=== PATIENT | male | born 1995 | race Caucasian/White ===

== ENCOUNTER 2016-08-09 13:18 | Emergency (ER) | payer MEDICAID ==
[~2016-08-09] VITALS: Ht 162.6 cm; Wt 70.0 kg
[~2016-08-09 13:18] MED LIST: HUMALOG SQ; INSU100V3; LIPI10TA PO; [UNRECOGNIZED DRUG - SUPPLY]
[2016-08-09 13:20] VITALS: BP 138/80; PULSE 104; RESP 20; TEMP 98.1; O2SAT 97
--- NOTE | 2016-08-09 13:40 | PD ---
Physical Exam Date Seen by Provider: Aug 09, 2016 Time Seen by Provider: 13:36 Narrative Patient seen in Triage with Complaints of Bilateral Arm Pain, R>L in the anterior elbows S/P recent Weightlifting. Patient states 15 reps X 10 each. Now having pain and stiffness with Decreased ROM due to pain. No other complaints. Patient has tried tylenol and ice without relief. Vital Signs Stable. Patient waiting Bed Placement. Data Data Last Documented VS Vital Signs Date Time Temp Pulse Resp B/P Pulse Ox O2 Delivery O2 Flow Rate FiO2 08/09/16 13:20 98.1 104 20 138/80 97 Room Air [facility] Medical Record Reviewed: Yes Supervised Visit with KOBE: Yes Condition: Stable Gus Granda Aug 09, 2016 13:40
[2016-08-09] MEDS ORDERED: IBUP800T23 PO (14:57)
[2016-08-09] MEDS ORDERED: ROBA500T PO (14:57)
--- NOTE | 2016-08-09 14:58 | PD ---
HPI Chief Complaint: Pain: Acute or Chronic Time Seen by Provider: 14:55 Travel History International Travel<30 days: No Contact w/Intl Traveler<30days: No Traveled to known affect area: No History of Present Illness HPI 20-year-old male presents to the emergency Department with complaint of bilateral biceps pain after working out lifting weights at the gym yesterday. Yesterday was his first time working out in a long time. He reports drinking multiple repetitions of arm workouts. He denies paresthesias, loss of sensation to bilateral upper extremities. Reports decreased range of motion at the elbow secondary to pain to the biceps with extension of his arms. Denies decreased strength to bilateral upper extremities. Denies fever, chills, nausea , vomiting. Has taken Tylenol with minimal relief of pain. No known allergies. History of type [address] Hanna is primary care provider. No other modifying factors or associated signs and symptoms. PFSH Past Medical History Developmental Delay: No Diabetes: Yes (TYPE 1) Diminished Hearing: No Immunizations Current: Yes Social History Alcohol Use: No Tobacco Use: No Substance Use: No Allergies-Medications (Allergen,Severity, Reaction): Coded Allergies: No Known Allergies (Verified , 10/07/14) Reported Meds & Prescriptions Reported Meds & Active Scripts Active Ibuprofen 800 Mg Tab 800 Mg PO Q6HR PRN Robaxin (Methocarbamol) 500 Mg Tab 500 Mg PO QID PRN [onetouch ultrablue] Strips Humalog (Insulin Human Lispro) 100 Units/Ml Inj 1 Unit SQ DIRECTED HUMALOG SLIDING SCALE INSULIN DIRECTED Reported Lipitor 10 Mg Tab (Atorvastatin Calcium) 10 Mg Tab 10 Mg PO DAILY Humulin N (Insulin Human NPH) Inj Review of Systems Except as stated in HPI: all other systems reviewed are Neg Physical Exam Narrative GENERAL: Well-nourished, well-developed male patient, in no acute distress SKIN: Warm and dry. HEAD: Atraumatic. Normocephalic. EYES: Pupils equal and round. No scleral icterus. No injection or drainage. ENT: Mucosa pink and moist. Airway patent. NECK: Trachea midline. CARDIOVASCULAR: Regular rate. RESPIRATORY: No accessory muscle use. GASTROINTESTINAL: Flat. MUSCULOSKELETAL: Bilateral upper extremities are supple and non-tense with 2+ radial pulses and sensory intact without erythema or edema; with full strength; patient unable to fully extend arms out secondary to pain. Bilateral shoulders with full range of motion. Tenderness elicited to bilateral biceps area. Bicep tendons intact bilaterally. No obvious deformities. No clubbing. No cyanosis. No edema. NEUROLOGICAL: Awake and alert. Oriented 3. No obvious cranial nerve deficits. Motor grossly within normal limits. Normal speech. PSYCHIATRIC: Appropriate mood and affect; insight and judgment normal. Data Data Last Documented VS Vital Signs Date Time Temp Pulse Resp B/P Pulse Ox O2 Delivery O2 Flow Rate FiO2 08/09/16 13:20 98.1 104 20 138/80 97 Room Air MDM Medical Decision Making Medical Screen Exam Complete: Yes Emergency Medical Condition: Yes Medical Record Reviewed: Yes Differential Diagnosis Muscle cramps, muscle strain, less likely bicep tendon tear Narrative Course 20-year-old male physical exam consistent with bilateral biceps muscle strain. Bilateral upper extremities are supple and non-tense with 2+ radial pulses and sensory intact and without erythema or edema. Robaxin and ibuprofen prescribed for home. Patient verbalizes understanding and agreement with treatment plan. Patient is medically cleared and stable for discharge. Discussed reasons to return to the emergency department. Instructed patient to follow up with primary care provider. Patient agrees with treatment plan. The patients vital signs are stable and the patient is stable for outpatient follow-up and treatment. Patient discharged home, stable and in no acute distress. Diagnosis Primary Impression: Strain of biceps muscle Qualified Code: S46.119A - Strain of biceps muscle, unspecified laterality, initial encounter Referrals: Primary Care Physician Patient Instructions: General Instructions, Muscle Cramp (ED), Muscle Spasm (ED ), Muscle Strain (ED) Departure Forms: Tests/Procedures, Work Release Enter return to work date: Aug 13, 2016 Additional Instructions: Tylenol or ibuprofen as directed and as needed for pain Robaxin as prescribed and as needed for muscle spasms Heating pad and/or ice to affected area to reduce pain Avoid aggravating activities; increase activity as tolerated Follow-up with primary care provider Return to emergency department immediately with worsening of symptoms Med/Other Pt SpecificInfo: Prescription(s) given Scripts Ibuprofen 800 Mg [id number] Mg PO Q6HR PRN (PAIN) #30 TAB Ref 0 Prov:Poornima Erickson [employer] REPA[employer] 08/09/16 Methocarbamol (Robaxin)500 Mg [id number] Mg PO QID PRN (MUSCLE SPASM) #30 TAB Ref 0 Prov:Poornima Erickson 08/09/16 Disposition: 01 DISCHARGE HOME Condition: Stable Poornima Erickson Aug 09, 2016 14:58
== END 2016-08-09 15:16 | disposition home or self-care (01) ==
LOC: NETRI 13:18
DX: S46.212A Strain of muscle, fascia and tendon of other parts of biceps, left arm, initial encounter (principal); S46.211A Strain of muscle, fascia and tendon of other parts of biceps, right arm, initial encounter; E10.9 Type 1 diabetes mellitus without complications; Z79.4 Long term (current) use of insulin; X50.0XXA Overexertion from strenuous movement or load, initial encounter; Y93.B3 Activity, free weights; Y92.39 Other specified sports and athletic area as the place of occurrence of the external cause
CPT/HCPCS: 99283

== ENCOUNTER 2016-09-11 20:45 | Emergency (ER) | payer MEDICAID ==
[~2016-09-11 20:45] MED LIST changes: +IBUP800T23 PO; +ROBA500T PO
[2016-09-11 20:46] VITALS: BP 153/94; PULSE 114; RESP 18; TEMP 99.7; O2SAT 97
--- NOTE | 2016-09-11 21:22 | PD ---
Physical Exam Time Seen by Provider: 21:21 Narrative 21 y/o male presents for evaluation of chest pain since this AM. Aching. Worse when lying down. Denies sob/cough/congestion/fevers/chills. Vital signs reviewed. Seen at triage desk. Awaiting bed placement. Data Data Last Documented VS Vital Signs Date Time Temp Pulse Resp B/P Pulse Ox O2 Delivery O2 Flow Rate FiO2 09/11/16 20:46 99.7 114 18 153/94 97 Room Air [facility] Medical Record Reviewed: Yes Supervised Visit with KOBE: Kashif Venegas September 11, 2016 21:22
[2016-09-11] MEDS ORDERED: SODIUM CHLORIDE 0.9% FLUSH 10 ML FLUSH IVF PRN (22:30)
--- NOTE | 2016-09-11 22:37 | RADRPT ---
EXAM DATE/TIME: 09/11/2016 22:11 [facility] COMPARISON: No previous studies available for comparison. INDICATIONS : Chest pain. MEDICAL HISTORY : Hypertension. Diabetes mellitus type I. Hypercholesterolemia. SURGICAL HISTORY : None. ENCOUNTER: Initial ACUITY: 1 day PAIN SCORE: 8/10 LOCATION: Bilateral chest FINDINGS: PA and lateral views of the chest demonstrate the lungs to be symmetrically aerated without evidence of mass, infiltrate or effusion. The cardiomediastinal contours are unremarkable. Osseous structure s are intact. CONCLUSION: Normal examination. Sage Mcgarry MD on September 11, 2016 at 22:34 Board Certified Radiologist. This report was verified electronically.
[2016-09-11 22:47] VITALS: RESP 18; O2SAT 99
--- NOTE | 2016-09-11 22:56 | RADRPT ---
EXAM DATE/TIME: 09/11/2016 22:47 [facility] COMPARISON: No previous studies available for comparison. INDICATIONS : Chest pain. MEDICAL HISTORY : None. SURGICAL HISTORY : None. ENCOUNTER: Initial ACUITY: 1 day PAIN SCORE: 0/10 LOCATION: Bilateral chest FINDINGS: A single view of the chest demonstrates the lungs to be symmetrically aerated without evidence of mas s, infiltrate or effusion. The cardiomediastinal contours are unremarkable. Osseous structures are intact. CONCLUSION: No acute disease. Sage Mcgarry MD on September 11, 2016 at 22:54 Board Certified Radiologist. This report was verified electronically.
[2016-09-11 23:08] LABS: AUTOMATED NEUTROPHIL # 3.3 TH/MM3 (1.8-7.7); BASOPHIL # 0.1 TH/MM3 (0-0.2); BASOPHIL % 1.3 % (0.0-2.0); EOSINOPHIL # 0.1 TH/MM3 (0-0.4); EOSINOPHIL % 2.2 % (0.0-4.0); HEMATOCRIT 43.7 % (39.0-51.0); HEMO FLAGS DIFF FINAL; LYMPH % 30.8 % (9.0-44.0); LYMPHOCYTE # 1.7 TH/MM3 (1.0-4.8); MEAN CELL VOLUME 79.3 FL (80.0-100.0); MEAN CORPUSCULAR HEMOGLOBIN 27.7 PG (27.0-34.0); MEAN CORPUSCULAR HGB CONC 34.9 % (32.0-36.0); MONO % 6.5 % (0.0-8.0); NEUT % 59.2 % (16.0-70.0); PLATELET COUNT 200 TH/MM3 (150-450); RED BLOOD COUNT 5.51 MIL/MM3 (4.50-5.90); WHITE BLOOD COUNT 5.6 TH/MM3 (4.0-11.0)
--- NOTE | 2016-09-11 23:16 | PD ---
HPI Chief Complaint: Chest Pain Time Seen by Provider: 22:30 Travel History International Travel<30 days: No Contact w/Intl Traveler<30days: No Traveled to known affect area: No History of Present Illness HPI Patient 21-year-old male with a history of diabetes and hypertension hyperlipidemia presents emergency Department with chest pain. Patient states that in the middle of the chest and nonradiating. He states that sometimes he has pain in his back but states that he thinks this is from something else. He states she's also been having some palpitations. He states his symptoms been going on since this morning. Patient states that he decided to go out and exercises hard to think it might make it feel better. He went for a jog and states this actually relieved his pain. He states he's never had any problems with his heart or his lungs never had pain like this before. Denies a history of long trips or history of blood clots. States sugars been fairly well- controlled. PFSH Past Medical History Cardiovascular Problems: Yes (hypertension) High Cholesterol: Yes Developmental Delay: No Diabetes: Yes Patient Takes Glucophage: No Diminished Hearing: No Hypertension: Yes Immunizations Current: Yes Influenza Vaccination: Yes Past Surgical History Surgical History: No Previous Surgery Social History Alcohol Use: No Tobacco Use: No Substance Use: No Allergies-Medications (Allergen,Severity, Reaction): Coded Allergies: No Known Allergies (Verified , 09/11/16) Reported Meds & Prescriptions Reported Meds & Active Scripts Active Ibuprofen 800 Mg Tab 800 Mg PO Q6HR PRN Robaxin (Methocarbamol) 500 Mg Tab 500 Mg PO QID PRN [onetouch ultrablue] Strips Humalog (Insulin Human Lispro) 100 Units/Ml Inj 1 Unit SQ DIRECTED HUMALOG SLIDING SCALE INSULIN DIRECTED Reported Lipitor 10 Mg Tab (Atorvastatin Calcium) 10 Mg Tab 10 Mg PO DAILY Humulin N (Insulin Human NPH) Inj Review of Systems Except as stated in HPI: all other systems reviewed are Neg Physical Exam Narrative GENERAL: Well-developed well-nourished no apparent distress, and collective and very pleasant. SKIN: No wounds, no rashes no bruises. HEAD: Atraumatic. Normocephalic. EYES: Pupils equal and round. No scleral icterus. No injection or drainage. ENT: No nasal bleeding or discharge. Mucous membranes pink and moist. NECK: Trachea midline. No JVD. CARDIOVASCULAR: Tachycardia with regular rhythm. No murmur appreciated. 2+ bilateral equal pulses in all 4 extremity's. RESPIRATORY: No accessory muscle use. Clear to auscultation. Breath sounds equal bilaterally. GASTROINTESTINAL: Abdomen soft, non-tender, nondistended. Hepatic and splenic margins not palpable. MUSCULOSKELETAL: No obvious deformities. No clubbing. No cyanosis. No edema. NEUROLOGICAL: Awake and alert. No obvious cranial nerve deficits. Motor grossly within normal limits. Normal speech. PSYCHIATRIC: Appropriate mood and affect; insight and judgment normal. Data Data Last Documented VS Vital Signs Date Time Temp Pulse Resp B/P Pulse Ox O2 Delivery O2 Flow Rate FiO2 09/11/16 22:47 18 99 Nasal Cannula 2 09/11/16 21:20 114 09/11/16 20:46 99.7 153/94 Orders Electrocardiogram (09/11/16 ) Chest, Pa & Lat (09/11/16 ) Electrocardiogram (09/11/16 22:30) Complete Blood Count With Diff (09/11/16 22:30) Comprehensive Metabolic Panel (09/11/16 22:30) D-Dimer (09/11/16 22:30) Magnesium (Mg) (09/11/16 22:30) Prothrombin Time / Inr (Pt) (09/11/16 22:30) Act Partial Throm Time (Ptt) (09/11/16 22:30) Troponin I (09/11/16 22:30) Lipase (09/11/16 22:30) Chest, Single Ap (09/11/16 22:30) Ecg Monitoring (09/11/16 22:30) Bilateral Bp Monitoring (09/11/16 22:30) Iv Access Insert/Monitor (09/11/16 22:30) Oximetry (09/11/16 22:30) Oxygen Administration (09/11/16 22:30) Sodium Chloride 0.9% Flush (Ns Flush) (09/11/16 22:30) Labs Laboratory Tests Test 09/11/16 22:55 White Blood Count 5.6 TH/MM3 Red Blood Count 5.51 MIL/MM3 Hemoglobin 15.2 GM/DL Hematocrit 43.7 % Mean Corpuscular Volume 79.3 FL Mean Corpuscular Hemoglobin 27.7 PG Mean Corpuscular Hemoglobin 34.9 % Concent Red Cell Distribution Width 13.0 % Platelet Count 200 TH/MM3 Mean Platelet Volume 9.3 FL Neutrophils (%) (Auto) 59.2 % Lymphocytes (%) (Auto) 30.8 % Monocytes (%) (Auto) 6.5 % Eosinophils (%) (Auto) 2.2 % Basophils (%) (Auto) 1.3 % Neutrophils # (Auto) 3.3 TH/MM3 Lymphocytes # (Auto) 1.7 TH/MM3 Monocytes # (Auto) 0.4 TH/MM3 Eosinophils # (Auto) 0.1 TH/MM3 Basophils # (Auto) 0.1 TH/MM3 CBC Comment DIFF FINAL Differential Comment Prothrombin Time 10.4 SEC Prothromb Time International 0.9 RATIO Ratio Activated Partial 25.7 SEC Thromboplast Time D-Dimer Quantitative (PE/DVT) LESS THAN 0.19 MG/L FEU Sodium Level 140 MEQ/L Potassium Level 3.7 MEQ/L Chloride Level 103 MEQ/L Carbon Dioxide Level 29.0 MEQ/L Anion Gap 8 MEQ/L Blood Urea Nitrogen 7 MG/DL Creatinine 1.04 MG/DL Estimat Glomerular Filtration 91 ML/MIN Rate Random Glucose 68 MG/DL Calcium Level 9.0 MG/DL Magnesium Level 2.1 MG/DL Total Bilirubin 0.3 MG/DL Aspartate Amino Transf 23 U/L (AST/SGOT) Alanine Aminotransferase 23 U/L (ALT/SGPT) Alkaline Phosphatase 123 U/L Troponin I LESS THAN 0.02 NG/ML Total Protein 7.0 GM/DL Albumin 4.1 GM/DL Lipase 56 U/L MDM Medical Decision Making Medical Screen Exam Complete: Yes Emergency Medical Condition: Yes Interpretation(s) EKG shows sinus tachycardia at a rate of 115, normal axis and normal R-wave progression. Nonspecific RSR prime pattern in V1, QRS duration is 86, no concerning ST changes. T-wave inversions in 3 and aVF nonspecific sign. This is a borderline EKG. Differential Diagnosis ACS unlikely, SC likely, PE, tachycardia, palpitations, pneumonia, costochondritis, pericarditis. Narrative Course Patient was roomed emerged permit, found to be tachycardic on initial examination. He did respond well to fluids and his discharge heart rate was 86. There may be a component of anxiety here as well as the patient's heart rate did go up when I was in the room. He certainly does not appear anxious. Initial workup including d-dimer troponin CBC CMP and coags are within normal limits. His EKG shows some evidence for left ventricular hypertrophy. His heart score is 3. He is very atypical for CS I think he is stable to pursue outpatient workup. He was given a referral to cardiology and I discussed return to ED criteria and need follow-up with his primary care physician as well. Last 24 hours Impressions Chest X-Ray 09/11/16 2230 Signed Impressions: Service Date/Time: Sunday, September 11, 2016 22:47 - CONCLUSION: No acute disease. Sage Mcgarry MD Chest X-Ray 09/11/16 0000 Signed Impressions: Service Date/Time: Sunday, September 11, 2016 22:11 - CONCLUSION: Normal examination. Sage Mcgarry MD Diagnosis Primary Impression: Chest pain with low risk for cardiac etiology Additional Impression: Palpitations Referrals: Wally Faith DO Disposition: 01 DISCHARGE HOME Condition: Stable Jerry Berman MD September 11, 2016 23:16
[2016-09-11 23:24] LABS: ALKALINE PHOSPHATASE 123 U/L (45-117); TOTAL BILIRUBIN ADULT 0.3 MG/DL (0.2-1.0)
[2016-09-11 23:29] LABS: ALT (GPT) 23 U/L (9-52); ANION GAP 8 MEQ/L (5-15); AST (GOT) 23 U/L (15-39); BLOOD UREA NITROGEN 7 MG/DL (7-18); CHLORIDE 103 MEQ/L (98-107); GLOMERULAR FILTRATION RATE 91 ML/MIN (>89); MAGNESIUM 2.1 MG/DL (1.5-2.5); POTASSIUM 3.7 MEQ/L (3.5-5.1); SODIUM (NA) 140 MEQ/L (136-145)
[2016-09-11 23:33] LABS: APTT (PATIENT) 25.7 SEC (24.3-30.1); INTERNATIONAL NORMALIZED RATIO 0.9 RATIO; PROTHROMBIN TIME - PATIENT 10.4 SEC (9.8-11.6)
[2016-09-12] VITALS: BP 137/85; PULSE 97; RESP 18; O2SAT 98
--- NOTE | 2016-09-12 08:42 | EKG ---
Date Performed: 09/11/2016 Time Performed: 21:41:37 PTAGE: 21 years EKG: SINUS TACHYCARDIA POSSIBLE RIGHT VENTRICULAR CONDUCTION DELAY NONSPECIFIC ST & T-WAVE ABNOR MALITY ABNORMAL ECG PREVIOUS TRACING : 07/21/2002 09.12 DOCTOR: Reinier Cm Interpretating Date/Time 09/12/2016 08:40:09
== END 2016-09-12 00:29 | disposition home or self-care (01) ==
LOC: NEPD 20:45
DX: R07.9 Chest pain, unspecified (principal); R00.2 Palpitations; R00.0 Tachycardia, unspecified; I10 Essential (primary) hypertension; E11.9 Type 2 diabetes mellitus without complications; E78.00 Pure hypercholesterolemia, unspecified
CPT/HCPCS: 71010; 71020; 80053; 83690; 83735; 84484; 85025; 85379; 85610; 85730; 93005

== ENCOUNTER 2017-03-25 15:03 | Emergency (ER) | payer MEDICAID ==
[~2017-03-25 15:03] MED LIST changes: +DICY10 PO; +IBUP1TAB7 PO; -IBUP800T23 PO
[2017-03-25 15:05] VITALS: BP 135/88; PULSE 101; RESP 16; TEMP 97.9; O2SAT 98
[2017-03-25 16:35] LABS: AUTOMATED NEUTROPHIL # 2.1 TH/MM3 (1.8-7.7); BASOPHIL # 0.1 TH/MM3 (0-0.2); BASOPHIL % 1.5 % (0.0-2.0); EOSINOPHIL # 0.1 TH/MM3 (0-0.4); EOSINOPHIL % 3.2 % (0.0-4.0); HEMATOCRIT 44.7 % (39.0-51.0); HEMO FLAGS DIFF FINAL; LYMPH % 39.6 % (9.0-44.0); LYMPHOCYTE # 1.6 TH/MM3 (1.0-4.8); MEAN CELL VOLUME 79.8 FL (80.0-100.0); MEAN CORPUSCULAR HEMOGLOBIN 28.4 PG (27.0-34.0); MEAN CORPUSCULAR HGB CONC 35.5 % (32.0-36.0); MONO % 5.6 % (0.0-8.0); NEUT % 50.1 % (16.0-70.0); PLATELET COUNT 176 TH/MM3 (150-450); RED CELL DISTRIBUTION WIDTH 13.3 % (11.6-17.2); WHITE BLOOD COUNT 4.2 TH/MM3 (4.0-11.0)
[2017-03-25] MEDS ORDERED: ENAL20TA PO (16:35)
[2017-03-25] MEDS ORDERED: ATOR10TA15 PO (16:35)
[2017-03-25] MEDS ORDERED: HUMALOG SQ (16:35)
[2017-03-25] MEDS ORDERED: SODIUM CHLOR 0.9% 1000 ML INJ 1,000 ML IV SCH (16:48)
--- NOTE | 2017-03-25 16:53 | PD ---
HPI Chief Complaint: Abdominal Pain Time Seen by Provider: 16:33 Travel History International Travel<30 days: No Contact w/Intl Traveler<30days: No Traveled to known affect area: No History of Present Illness HPI 21-year-old male presents to emergency department complaining of right upper quadrant abdominal pain since yesterday. Pain radiates from the front to the back. Denies history of kidney stones. Denies nausea, vomiting, diarrhea, fevers. Denies dysuria, hematuria. Denies history of abdominal surgeries. Rates pain 10/10 and describes as an aching. Has taken Tylenol with some relief of symptoms. Pain is constant and no known aggravating factors. No known relieving factors. Denies alcohol use. Primary care provider is Dr. Lopez. No known allergies. History of hypertension, diabetes type 1 and hypercholesterolemia. PFSH Past Medical History Cardiovascular Problems: Yes (hypertension) High Cholesterol: Yes Developmental Delay: No Diabetes: Yes Patient Takes Glucophage: No Diminished Hearing: No Hypertension: Yes Immunizations Current: Yes Social History Alcohol Use: No Tobacco Use: No Substance Use: No Allergies-Medications (Allergen,Severity, Reaction): Coded Allergies: No Known Allergies (Verified Adverse Reaction, Unknown, 03/11/17) Reported Meds & Prescriptions Reported Meds & Active Scripts Active Reported Humalog Inj (Insulin Human Lispro) 1,000 Unit/10 Ml Vial 35 Units SQ BIDAC Max dose at bedtime:( )units; sugars < 70,(0)units; sugars 150-199,(5)units; sugars 200-249,(10)units; sugars 250-299,(15)units; sugars 300-349,(20)units; sugars more than 349,(25)units. Enalapril (Enalapril Maleate) 20 Mg Tab 20 Mg PO DAILY Atorvastatin (Atorvastatin Calcium) 10 Mg Tab 10 Mg PO HS Review of Systems Except as stated in HPI: all other systems reviewed are Neg Physical Exam Narrative GENERAL: Well-nourished, well-developed male patient, in no acute distress; afebrile SKIN: Warm and dry. HEAD: Atraumatic. Normocephalic. EYES: Pupils equal and round. No scleral icterus. No injection or drainage. ENT: Mucosa pink and moist. Airway patent. NECK: Trachea midline. CARDIOVASCULAR: Regular rate and rhythm. No murmur appreciated. RESPIRATORY: No accessory muscle use. Clear to auscultation. Breath sounds equal bilaterally. GASTROINTESTINAL: Abdomen soft, tenderness on palpation to right upper quadrant , nondistended. Hepatic and splenic margins not palpable. Bowel sounds are active 4 quadrants. Nonrigid. No rebound tenderness. No guarding. BACK: Right CVA tenderness. MUSCULOSKELETAL: No obvious deformities. No clubbing. No cyanosis. No edema. NEUROLOGICAL: Awake and alert. Oriented 3. No obvious cranial nerve deficits. Motor grossly within normal limits. Normal speech. PSYCHIATRIC: Appropriate mood and affect; insight and judgment normal. Data Data Last Documented VS Vital Signs Date Time Temp Pulse Resp B/P (MAP) Pulse Ox O2 Delivery O2 Flow Rate FiO2 03/25/17 15:05 97.9 101 16 135/88 (104) 98 Orders Orders Complete Blood Count With Diff (03/25/17 15:17) Urinalysis - C+S If Indicated (03/25/17 15:17) Comprehensive Metabolic Panel (03/25/17 15:17) Lipase (03/25/17 15:18) Iv Access Insert/Monitor (03/25/17 16:48) Sodium Chlor 0.9% 1000 Ml Inj (Ns 1000 M (03/25/17 16:48) Sodium Chloride 0.9% Flush (Ns Flush) (03/25/17 17:00) Ketorolac Inj (Toradol Inj) (03/25/17 17:00) Ct Abd/Pel W Iv Contrast(Rout) (03/25/17 16:53) Iohexol 350 Inj (Omnipaque 350 Inj) (03/25/17 17:28) Ed Discharge Order (03/25/17 18:17) Labs Laboratory Tests Test 03/25/17 15:53 03/25/17 15:55 White Blood Count 4.2 TH/MM3 Red Blood Count 5.60 MIL/MM3 Hemoglobin 15.9 GM/DL Hematocrit 44.7 % Mean Corpuscular Volume 79.8 FL Mean Corpuscular Hemoglobin 28.4 PG Mean Corpuscular Hemoglobin Concent 35.5 % Red Cell Distribution Width 13.3 % Platelet Count 176 TH/MM3 Mean Platelet Volume 9.5 FL Neutrophils (%) (Auto) 50.1 % Lymphocytes (%) (Auto) 39.6 % Monocytes (%) (Auto) 5.6 % Eosinophils (%) (Auto) 3.2 % Basophils (%) (Auto) 1.5 % Neutrophils # (Auto) 2.1 TH/MM3 Lymphocytes # (Auto) 1.6 TH/MM3 Monocytes # (Auto) 0.2 TH/MM3 Eosinophils # (Auto) 0.1 TH/MM3 Basophils # (Auto) 0.1 TH/MM3 CBC Comment DIFF FINAL Differential Comment Blood Urea Nitrogen 8 MG/DL Creatinine 1.10 MG/DL Random Glucose 227 MG/DL Total Protein 7.2 GM/DL Albumin 4.0 GM/DL Calcium Level 9.4 MG/DL Alkaline Phosphatase 125 U/L Aspartate Amino Transf (AST/SGOT) 18 U/L Alanine Aminotransferase (ALT/SGPT) 21 U/L Total Bilirubin 0.6 MG/DL Sodium Level 135 MEQ/L Potassium Level 4.4 MEQ/L Chloride Level 100 MEQ/L Carbon Dioxide Level 29.1 MEQ/L Anion Gap 6 MEQ/L Estimat Glomerular Filtration Rate 85 ML/MIN Lipase 64 U/L Urine Color YELLOW Urine Turbidity CLEAR Urine pH 6.0 Urine Specific [place] 1.021 Urine Protein NEG mg/dL Urine Glucose (UA) 1000 mg/dL Urine Ketones NEG mg/dL Urine Occult Blood NEG Urine Nitrite NEG Urine Bilirubin NEG Urine Urobilinogen LESS THAN 2.0 MG/DL Urine Leukocyte Esterase NEG Urine RBC LESS THAN 1 /hpf Urine WBC LESS THAN 1 /hpf Urine Squamous Epithelial Cells <1 /hpf Urine Mucus FEW /lpf Microscopic Urinalysis Comment CULT NOT INDICATED MDM Medical Decision Making Medical Screen Exam Complete: Yes Emergency Medical Condition: Yes Medical Record Reviewed: Yes Differential Diagnosis Kidney stone, cholecystitis, gallstones Narrative Course 21-year-old male with right upper quadrant abdominal pain. I discussed the patient with weightyanni, my attending physician, who agrees with plan of care. CBC, CMP, urinalysis, IV fluid bolus, Toradol, CT abdomen/pelvis ordered. 180: CBC, CMP, lipase, urinalysis unremarkable. Abdomen/Pelvis CT 03/25/17 1653 Signed Impressions: Service Date/Time: Saturday, March 25, 2017 17:23 - CONCLUSION: Small contracted gallbladder. Ultrasound showed no gallstones. Jaziel Gandhi MD FACR CT findings were discussed with the patient. Patient was also seen on March 11, 2017 for the same complaint and had a normal gallbladder ultrasound. Instructed the patient to follow up with gastroenterology. Instructed patient to follow up with primary care provider. Patient verbalizes understanding and agreement with treatment plan. Patient is medically cleared and stable for discharge. Discussed reasons to return to the emergency department. Patient agrees with treatment plan. The patients vital signs are stable and the patient is stable for outpatient follow-up and treatment. Patient discharged home, stable and in no acute distress. Diagnosis Primary Impression: Abdominal pain Qualified Codes: R10.11 - Right upper quadrant pain Referrals: Cloth Edge Singer Primary Care Physician Patient Instructions: Abdominal Pain (ED), General Instructions Additional Instructions: Ibuprofen or Tylenol as directed and as instructed for pain Follow-up with primary care provider Follow-up with gastroenterology Return to the emergency department immediately with worsening of symptoms Med/Other Pt SpecificInfo: No Change to Meds, No Meds Exist/No RX given Disposition: 01 DISCHARGE HOME Condition: Stable Poornima Erickson Mar 25, 2017 16:53
[2017-03-25 16:54] LABS: ALT (GPT) 21 U/L (9-52); ANION GAP 6 MEQ/L (5-15); AST (GOT) 18 U/L (15-39); BICARBONATE 29.1 MEQ/L (21.0-32.0); BLOOD UREA NITROGEN 8 MG/DL (7-18); CHLORIDE 100 MEQ/L (98-107); GLOMERULAR FILTRATION RATE 85 ML/MIN (>89); POTASSIUM 4.4 MEQ/L (3.5-5.1); SODIUM (NA) 135 MEQ/L (136-145)
[2017-03-25 16:56] LABS: ALKALINE PHOSPHATASE 125 U/L (45-117); TOTAL BILIRUBIN ADULT 0.6 MG/DL (0.2-1.0)
[2017-03-25 16:56] LABS: BLOOD, URINE NEG (NEG); COMMENT (UR) CULT NOT INDICATED; CULTURE IF INDICATED CULT NOT INDICATED; GLUCOSE,URINE 1000 mg/dL (NEG); KETONE, URINE NEG (NEG); MUCUS URINE FEW /lpf (OCC); NITRITE,URINE NEG (NEG); SQUAMOUS EPITHELIAL CELL URINE <1 /hpf (0-5); URINE COLOR YELLOW (YELLW/STRAW)
[2017-03-25] MEDS ORDERED: KETOROLAC TROMETHAMINE 30 MG/ML (IVP) VIAL IVP ONE (17:00)
[2017-03-25] MEDS ORDERED: SODIUM CHLORIDE 0.9% FLUSH 10 ML FLUSH IV FLUSH PRN (17:00)
[2017-03-25] MEDS ORDERED: IOHEXOL 350 MG/ML 10 ML VIAL (for RAD DIAG) IVCONTRAST ONE (17:28)
--- NOTE | 2017-03-25 17:37 | RADRPT ---
EXAM DATE/TIME: 03/25/2017 17:23 [facility] COMPARISON: No previous studies available for comparison. INDICATIONS : Right upper quadrant pain. IV CONTRAST: 80 cc Omnipaque 350 (iohexol) IV ORAL CONTRAST: No oral contrast ingested. RADIATION DOSE: 5.23 CTDIvol (mGy) MEDICAL HISTORY : Cardiovascular disease. Hypertension. Diabetes. SURGICAL HISTORY : None. ENCOUNTER: Initial ACUITY: 2 days PAIN SCALE: 8/10 LOCATION: Right upper quadrant TECHNIQUE: Volumetric scanning of the abdomen and pelvis was performed. Using automated exposure control and ad justment of the mA and/or kV according to patient size, radiation dose was kept as low as reasonably achievable to obtain optimal diagnostic quality images. DICOM format image data is available electro nically for review and comparison. FINDINGS: LOWER LUNGS: The visualized lower lungs are clear. LIVER: Homogeneous density without lesion. Gallbladder small and contracted.. I don't see gallstones. SPLEEN: Normal size without lesion. PANCREAS: Within normal limits. KIDNEYS: Normal in size and shape. There is no mass, stone or hydronephrosis. ADRENAL GLANDS: Within normal limits. VASCULAR: There is no aortic aneurysm. BOWEL/MESENTERY: The stomach, small bowel, and colon demonstrate no acute abnormality. There is no free intraperitone al air or fluid. ABDOMINAL WALL: Within normal limits. RETROPERITONEUM: There is no lymphadenopathy. BLADDER: No wall thickening or mass. REPRODUCTIVE: Within normal limits. INGUINAL: There is no lymphadenopathy or hernia. MUSCULOSKELETAL: Within normal limits for patient age. CONCLUSION: Small contracted gallbladder. Ultrasound showed no gallstones. Jaziel Gandhi MD FACR on March 25, 2017 at 17:32 Board Certified Radiologist. This report was verified electronically.
== END 2017-03-25 19:06 | disposition home or self-care (01) ==
LOC: NEPD 15:03
DX: R10.11 Right upper quadrant pain (principal); E10.9 Type 1 diabetes mellitus without complications; I10 Essential (primary) hypertension; E78.00 Pure hypercholesterolemia, unspecified; Z79.4 Long term (current) use of insulin
CPT/HCPCS: 74177; 80053; 81001; 83690; 85025; 96361; 96374; 99285; J1885; J7030; Q9967